=== PATIENT | female | born 1985 | race Caucasian/White ===

== ENCOUNTER 2018-04-10 17:15 | Outpatient (CLI) | payer MEDICAID, SELFPAY ==
[2018-04-10 18:14] VITALS: BMI 35.5
[2018-04-10 18:25] LABS: ROM Internal Control Test YES-OK TO RESULT pt. (Internal QC); ROM Patient Test Negative (Negative)
[2018-04-10 19:32] LABS: Group B Strep DNA By PCR Negative (Negative); Internal Control PASS; Probe Check PASS; Specimen Processing Control PASS
--- NOTE | 2018-04-11 03:32 | OB.TRI.NOTE ---
- Problem List (1) False labor Status: Acute History of Present Illness Date of Service: 04/10/18 Was patient seen by the physician?: No Reason For Visit: R/O LABOR Date of Service: 04/10/18 Final ROGER: 05/11/18 Gestational age: 35w4d History of Present Illness: female at 35w4 days, ROGER 05/11/18. Presented to L&D with complaint of leakage of fluid this afternoon. No contractions, vaginal bleeding or other complaints. Good movement. Allergies No Known Allergies Allergy (Verified 04/10/18 18:16) Laboratory Studies: Laboratory Tests 04/10/18 04/10/18 Range/Units 17:40 17:40 Vag Amniotic Fld Detect Negative (Negative) Group B Strep DNA Negative (Negative) Specimen Comment Not Reportable NST - FHR Rate Baby A Baseline: 145 Variability:: Moderate Accelerations:: 15 x 15 Decelerations:: None NST Reactive:: Yes Uterine Activity:: Irregular Impression/Plan A:False Labor P: 1) ROM plus negative, membranes intact 2) D/C home
--- NOTE | 2018-04-11 03:37 | OB.TRI.HP_ITS ---
- Problem List (1) False labor Status: Acute History of Present Illness Date of Service: 04/10/18 Was patient seen by the physician?: No Reason For Visit: R/O LABOR Date of Service: 04/10/18 Final ROGER: 05/11/18 Gestational age: 35w4d History of Present Illness: female at 35w4 days, ROGER 05/11/18. Presented to L&D with complaint of sapna kage of fluid this afternoon. No contractions, vaginal bleeding or other complaints. Good movement. Allergies No Known Allergies Allergy (Verified 04/10/18 18:16) Laboratory Studies: Laboratory Tests 04/10/18 04/10/18 Range/Units 17:40 17:40 Vag Amniotic Fld Detect Negative (Negative) Group B Strep DNA Negative (Negative) Specimen Comment Not Reportable NST - FHR Rate Baby A Baseline: 145 Variability:: Moderate Accelerations:: 15 x 15 Decelerations:: None NST Reactive:: Yes Uterine Activity:: Irregular Impression/Plan A:False Labor P: 1) ROM plus negative, membranes intact 2) D/C home
== END 2018-04-10 19:00 | disposition home or self-care (01) ==
LOC: WPOUT 17:18 → WP 17:19
PROVIDERS: Family Provider Internal Medicine; PCP Internal Medicine; Referring Provider Advanced Practice Midwife; Visit Provider Advanced Practice Midwife
DX: O47.03 False labor before 37 completed weeks of gestation, third trimester (principal); Z3A.35 35 weeks gestation of pregnancy
CPT/HCPCS: 59025; 59050; 84112; 87081; 87653; 99218; G0378

== ENCOUNTER 2018-04-27 10:10 | Inpatient (IN) | payer MEDICAID, SELFPAY ==
[2018-04-27 10:23] VITALS: BMI 36.3
[2018-04-27 11:07] LABS: Hematocrit 37.8 % (37-47); Hemoglobin 12.2 g/dl (12.0-15.0); Mean Corp Hgb Conc 32.3 g/gl (32-36); Mean Corpuscular Hgb 30.3 pg (27.0-32.0); Mean Platelet Vol. 12.9 fl (6.2-12.0); Platelet Count 172 K/mm3 (150-450); RBC Distribution Width CV 14.4 % (11.6-14.6); RBC Distribution Width SD 49.1 fl (35.1-43.9); Red Blood Count 4.02 M/mm3 (4.2-5.4); White Blood Count 8.4 K/mm3 (4.4-11.0)
[2018-04-27 11:08] LABS: Scan Indicated on CBC? Y/N NO
[2018-04-27 11:13] LABS: International Normalized Ratio 0.9; Prothrombin Time (Protime)PT. 12.2 SECONDS (11.7-14.9)
[2018-04-27 11:23] LABS: AST(SGOT) 11 U/L (15-37); Alanine Aminotransfer ALT/SGPT 18 U/L (13-56); Creatinine, Serum 0.59 mg/dL (0.55-1.02); EST Glomerular Filtration Rate 126 mL/min (>60); Est Glom Filt Rate - Afr Amer 153 mL/min (>60); Estimated Creatinine Clearance 110.27 ml/min; Uric Acid 4.2 mg/dL (2.6-6.0)
[2018-04-27] MEDS: miSOPROStol 25 MCG TABLET VAGINAL (11:35)
[2018-04-27] MEDS: 0.9% Normal Saline 100 ML IV.SOLN. INTRA-UTER (13:15)
--- NOTE | 2018-04-27 13:25 | HP.PCM_ITS ---
History Date of Admission: 04/27/18 Final ROGER: 05/11/18 Final ROGER Source: US <20 weeks Gestational age: 38 Weeks and 0 Days History of this : This is a 32 year-old, G 1, P 0, at 38 weeks gestational age with EDC of 05/11/2018 by first trimester ultrasound alone presents for induction of labor due to gestational hypertension. She denies any vaginal bleeding or leaking of fluid. She has had good movement. She denies any headache or visual changes or epigastric pain. Her blood pressures have been trending up and some of her diastolics have been running in the 80s. In the office today several blood pressures were done and her average on the true BP monitor was 142/86. We had another reading of 148/88. Allergies No Known Allergies Allergy (Verified 04/27/18 11:01) Home Medications: Home Medications Vitamin Tablet 1 04/10/18 Smoking Status: Never smoker Alcohol: None Number of Fetus(es): 1 Heart Tracing: Normal baseline, moderate variability, spontaneous accelerations. Category 1 TOCO Analysis: Irregular contractions History Past Pregnancies: Past Pregnancies Delivery Date Name GA/Weeks Outcome Route Weight Gender Labor Length Anesthesia Delivery Location Provider FOB Expected Infant Delivery Method: Spontaneous Vaginal Review of Systems Constitutional: Denies: Anorexia, Chills, Fever Eyes: Denies: Blurred vision Cardiovascular: Denies: Chest Pain Respiratory: Reports: Shortness of Breath - normal for . Denies: Cough Gastrointestinal: Denies: Abdominal Pain, Vomiting Genitourinary: Denies: Dysuria Neurological: Denies: Blurred vision, Change in Speech Physical Exam General: Alert, Cooperative, No apparent distress Cardiovascular: Regular rate Lungs: Normal air movement Abdomen: Soft, Non Tender, Non-Distended, Gravid, Appropriate for Gestational Age Extremities:: Other - 1+ LE edema Neurological: Deep Tendon Reflexes 2+/4 and Symmetrical, Neuro grossly intact, Motor Exam 5/5 strength throughout [employer]: Normal external genitalia Estimated gestational size: Appropriate for gestational size Presentation: Cephalic Cervix Dilation (cm): 0.5 - mid position, firm consistency Station: -2 Effacement (%): 60 Assessment/Plan All Active Problems False labor (Acute) This is a 32 year-old, G 1, P 0, at 38 weeks gestational age. Gestational hypertension without evidence of preeclampsia. Labs are reviewed and are normal. Risk benefits and alternatives to induction of labor been discussed with the patient, questions were answered to her satisfaction, consent was signed and she desires to proceed. One dose of vaginal Cytotec given. Can catheter placed over a stylette into the external cervical loss and balloon inflated w. 30 cc of normal saline. This was performed in the usual sterile fashion. Placement against the internal cervical loss was confirmed. Will initiate pitocin after cytotec vaginal.
[2018-04-27 14:43] LABS: Protein, Urine (Random) 23.9 mg/dL (<11.9); Protein:Creat Ratio 219 mg/g CRE (0-200)
[2018-04-27] MEDS: Lactated Ringers 1,000 ML 50 ML IV ×3 (19:20→22:31)
[2018-04-27] MEDS: Oxytocin 30 units/NS 500 ml 30 UNITS/500 ML IV.SOLN IV (20:21)
[2018-04-28] MEDS: fentaNYL-bupivacaine (epidural) 100 ML BAG EPIDURAL ×4 (00:38→15:19)
[2018-04-28] MEDS: Lactated Ringers 1,000 ML 50 ML IV ×4 (03:29→18:42)
--- NOTE | 2018-04-28 10:04 | PCM.PN.BLA ---
Progress Note S: Patient comfortable with epidural O: cvx - 8/80/0 fhts 150 with minimal to moderate variability, accels tocos Q 3-4 min A&P: continue pitocin induction FWB - EFM overall reassuring BP's overall normal
[2018-04-28] MEDS: Ondansetron 4 MG/2 ML Vial IV (10:22)
--- NOTE | 2018-04-28 19:00 | PCM.OB.VAG ---
Vaginal Delivery Maternal Presentation: Medically Indicated Induction Method of Induction: Pitocin, Can Bulb, Amniotomy, Cytotec Medical Reason for Induction: Gestational Hypertension Amniotic Membrane Rupture Type: Artificial Amniotic Fluid Description: Clear Final ROGER: 05/11/18 Gestational age: 38 Weeks and 1 Days Date of Procedure: 04/28/18 Pre-Operative Diagnosis: Gestational hypertension Post-Operative Diagnosis: Same Surgery/ Procedure Performed: Spontaneous Vaginal Delivery Type of Anesthesia: Epidural Description of Procedure: Patient prepped & draped when c/c/+3. She pushed with good effort to deliver the head. head gently guided to allow delivery of anterior & posterior shoulders. No excess traction placed on head. Body delivered & infant placed on maternal abdomen. 3VC clamped & cut in delayed fashion. Placenta delivered with gentle traction & good uterine tone obtained. Presentation: ROP Placental Delivery Description: Expressed Placenta Disposition: [facility] Cord Vessel Description: 3 Vessels Cord Entanglement: None Infant A gender: Female (1 minute): 6 (5 minute): 8 Episiotomy Description: None Laceration: 2nd degree - perineal - repaird with 3-0 vicryl Medications given after delivery: IV Pitocin Complications: None
[2018-04-28] MEDS: Oxytocin 30 units/NS 500 ml 30 UNITS/500 ML IV.SOLN 334 UNITS IV (19:18)
[2018-04-28] MEDS: Oxytocin 30 units/NS 500 ml 30 UNITS/500 ML IV.SOLN 167 UNITS IV (19:48)
[2018-04-28] MEDS: 0.9% Saline Lock 10 ML Syringe IV (21:00)
[2018-04-28 21:30] VITALS: BP 135/81; PULSE 90; RESP 16; TEMP 37
[2018-04-28] MEDS: Naproxen 250 MG Tablet PO (23:08)
[2018-04-29 00:30] VITALS: BP 136/85; PULSE 114; RESP 16; TEMP 36
[2018-04-29 04:53] VITALS: BP 126/60; PULSE 95; RESP 18; TEMP 35.9
[2018-04-29 09:02] VITALS: BP 138/79; PULSE 89; RESP 16; TEMP 36.2
[2018-04-29 11:48] VITALS: BP 139/82; PULSE 86; RESP 16; TEMP 36.2
--- NOTE | 2018-04-29 13:27 | PCM.PN.OB ---
Subjective: Patient sitting up in bed at this time . Patient denies any issues, complaints or concerns. Denies any issues with latch. Denies complications with urination or ambulation. Objective: Nipples without cracks or blisters, no erythema noted BL Abdomen NT x 4 quadrants, FF midline 2FB below umbilicus +2/4 reflexes in LE, no edema, no calf tenderness to palpation Scant rubra lochia - Physical Exam General: Alert, Oriented x3, Cooperative HEENT: Atraumatic, Normocephalic Neck: Supple Lungs: Normal air movement Cardiovascular: Regular rate, No murmurs Abdomen: Soft, Non Tender Extremities: No edema, Capillary Refill Less than 3 Seconds Skin: No rashes, No breakdown Musculoskeletal: No Tenderness to Palpation of Joints or Extremities Neurological: Cranial nerves II-XII grossly intact Psych/Mental Status: Normal Affect, Appropriate Vital Signs Temp Pulse Resp BP 97.2 F L 86 16 139/82 H 04/29/18 11:48 04/29/18 11:48 04/29/18 11:48 04/29/18 11:48 Oxygen Delivery Method Room Air Weight: 198 lb 9.6 oz Body Mass Index (BMI) 36.3 Intake and Output for Last 24 Hours 04/27/18 04/28/18 04/29/18 23:59 23:59 23:59 Intake Total 450 / 450 4374 / 4374 Output Total 300 / 300 2350 / 2350 425 / 425 Balance 150 / 150 2023 -425 / -425 Medical Necessity - Tobacco Use Smoking Status: Never smoker Assessment/Plan All Active Problems False labor (Acute) 32 y/o s/p , PPD #1, Normal PP course P: 1) Continue present PP orders at this time 2) Anticipate discharge to home tomorrow Pat Helton APRN-BECCA
--- NOTE | 2018-04-29 13:33 | DCINST_ITS ---
Discharge Diet: No Restrictions Discharge Activity: Return to Normal Activity, May not drive while taking narcotic pain medications., May Shower May resume sexual activity in: 4-6 weeks Additional Activity Instructions:: Nothing in the vagina for 4-6 weeks. You may return to work/school in 6 weeks. Call your doctor if your incision/area has: Continuous Slow Oozing, Sudden Increased Bleeding, Increased Pain/ Swelling, Increased Redness, Foul Smelling Discharge Call your doctor if you observe: Fever of 101 or Higher, Inability to urinate, Inability to have a bowel movement, Using more than one pad per hour Additional Instructions: If you experience any of the following, contact your healthcare provider. * Bleeding that soaks a pad every hour for 2 hours * Fever 100.4 or higher * Unrelieved incision or abdominal pain * Swelling, redness, discharge or bleeding from your incision or episiotomy site * Your incision begins to separate * Problems urinating (including inability to urinate or burning while urinating). * Visual changes * Severe headache * Flu-like symptoms * Pain or redness in one of both of your breasts * Pain, warmth, tenderness or swelling in your legs, especially the calf area * Frequent nausea and vomiting * Symptoms of depression or anxiety If you experience any of the following, call 911 or go to the nearest Emergency Room. * Chest pain * Problems breathing * Seizure activity * Partial or complete paralysis of a body part, slurred speech, weakness or drooping of the face, or a sudden inability to walk or hold your balance Allergies/Adverse Reactions: Allergies No Known Allergies Allergy (Verified 04/27/18 11:01) Medications to take at Discharge Vitamin Tablet 1 04/10/18 Please Follow Up With: Pat Helton CNM - 2 week PP visit When: Call to make an appointment with your doctor in 6 weeks. If you had elevated Blood Pressure or 4th degree laceration you will need to be seen in 2 weeks. Please Follow Up With: Alba Main - 6 weeks PP visit Primary Care Physician: Cedrick Lam MD [Primary Care Provider] - Test Results: Test results from this visit will be discussed in further detail at your follow- up appointment, if applicable. Proposed Discharge Date: 04/30/18
[2018-04-29 16:20] VITALS: BP 129/71; PULSE 72; RESP 20; TEMP 36.4
[2018-04-29] MEDS: Naproxen 250 MG Tablet PO (19:02)
[2018-04-29 20:00] VITALS: BP 126/69; PULSE 87; RESP 14; TEMP 36.9; O2SAT 97
[2018-04-30 02:25] VITALS: BP 118/56; PULSE 75; RESP 14; TEMP 36.8; O2SAT 96
[2018-04-30] MEDS: Acetaminophen 500 MG Tablet 1000 MG PO (02:32)
[2018-04-30 08:09] VITALS: BP 122/68; PULSE 99; RESP 16; TEMP 36.5
--- NOTE | 2018-04-30 12:45 | PCM.PN.OB ---
Subjective: Doing well per patient and nursing staff. without difficulty. Voiding and passing flatus. Denies headache, visual changes, chest pain, SOB, increased vaginal bleeding or clots. Planning D/C home today. - Physical Exam General: Alert, Oriented x3, Cooperative, No apparent distress HEENT: Atraumatic, Normocephalic Neck: Supple, Trachea Midline Lungs: Clear to auscultation, No rhonchi, No wheeze Cardiovascular: Regular rate, Regular Rhythm, No murmurs Abdomen: - - Non tender 3 below U Extremities: Edema - +1 BLE edema, pitting, - - +2/4 bilateral patllar. No clonus Neurological: Deep Tendon Reflexes 2+/4 and Symmetrical Psych/Mental Status: Normal Affect, Appropriate Vital Signs Temp Pulse Resp BP Pulse Ox 97.7 F L 99 16 122/68 H 96 04/30/18 08:09 04/30/18 08:09 04/30/18 08:09 04/30/18 08:09 04/30/18 02:25 Oxygen Delivery Method Room Air Weight: 198 lb 9.6 oz Body Mass Index (BMI) 36.3 Intake and Output for Last 24 Hours 04/28/18 04/29/18 04/30/18 23:59 23:59 23:59 Intake Total 4374 / 4374 Output Total 2350 / 2350 425 / 425 Balance 2023 / 2023 -425 / -425 Medical Necessity - Tobacco Use Smoking Status: Never smoker Assessment/Plan All Active Problems False labor (Acute) A: of viable female Gestational HTN P: 1) Routine D/C instructions and BF info given. 2) Follow up for BP check on Friday, May 04 and 6week visit. 3) Reviewed Pre-e precautions and when to call. BP stable at this time.
[2018-04-30 13:10] VITALS: BP 127/72; PULSE 76; RESP 16; TEMP 36.4
--- NOTE | 2018-05-05 18:19 | NURSING ---
follow up call complete, denies questions, concerns and was satisfied with care
== END 2018-04-30 13:40 | disposition home or self-care (01) | DRG 560 ==
PROVIDERS: Admitting Provider Obstetrics & Gynecology; Family Provider Internal Medicine; PCP Internal Medicine; Visit Provider Obstetrics & Gynecology
DX: O13.4 Gestational [pregnancy-induced] hypertension without significant proteinuria, complicating childbirth (principal); O70.1 Second degree perineal laceration during delivery; Z3A.38 38 weeks gestation of pregnancy; Z37.0 Single live birth
CPT/HCPCS: 59025; 59050; 82565; 82570; 84156; 84450; 84460; 84550; 85027; 85610; 85730; 86850; 86900; 99218; J7050; J7120; A4216; G0378; J2405

== ENCOUNTER 2018-06-07 18:04 | Emergency (ER) | payer MEDICAID, SELFPAY ==
[2018-06-07 18:06] VITALS: BP 150/87; PULSE 81; RESP 17; TEMP 36.6; O2SAT 97; BMI 31.1
--- NOTE | 2018-06-07 18:15 | RAD_ITS ---
STUDY: X-RAY CHEST REASON FOR EXAM: Female, 32 years old. Chest pain TECHNIQUE: Single AP portable view of the chest. COMPARISON: None. FINDINGS: The lungs are clear and expanded. There is no demonstrated pleural abnormality. Normal size heart. Normal mediastinum and donovan. Normal visualized pulmonary arteries. Normal visualized aortic arch and descending thoracic aorta. Normal visualized thoracic spine. Normal visualized ribs, clavicles, and shoulders. There is no demonstrated abnormality of the visualized soft tissue structures of the upper abdomen. RAD/Chest 1 View (Portable) IMPRESSION: Normal x-ray examination of the chest. Electronically Signed: Kenneth Davidson MD at 18:52 EST , Service support ,
[2018-06-07 18:22] VITALS: O2SAT 97
[2018-06-07 18:25] LABS: Absolute Lymphocyte Count 1.75 X10^3/ul (0.83-4.51); Absolute Neutrophil Count 3.4 X10^3/uL (2.0-7.7); Basophil# 0.01 X10^3/uL; Basophil% 0.2 % (0-1); Eosinophil# 0.12 X10^3/uL; Eosinophils% 2.1 % (0-5); Hematocrit 41.3 % (37-47); Hemoglobin 13.5 g/dl (12.0-15.0); Lymphocyte # 1.75 X10^3/ul (4.0); Lymphocyte % 30.5 % (19-41); Mean Corp Hgb Conc 32.7 g/gl (32-36); Mean Corpuscular Hgb 29.7 pg (27.0-32.0); Mean Platelet Vol. 11.3 fl (6.2-12.0); Neutrophil # 3.44 X10^3/uL (2.7-7.7); Platelet Count 199 K/mm3 (150-450); RBC Distribution Width CV 13.1 % (11.6-14.6); RBC Distribution Width SD 43.5 fl (35.1-43.9); Red Blood Count 4.54 M/mm3 (4.2-5.4); White Blood Count 5.7 K/mm3 (4.4-11.0)
[2018-06-07 18:27] LABS: POSITIVE COUNT NO; POSITIVE DIFFERENTIAL NO; POSITIVE MORPHOLOGY NO
[2018-06-07 18:45] LABS: Anion Gap 9 (5-15); BUN 12 mg/dL (7-18); BUN/Creat Ratio 12.2 RATIO (10-20); Calcium,Total 8.5 mg/dL (8.5-10.1); Chloride 107 mmol/L (98-107); Creatinine, Serum 0.98 mg/dL (0.55-1.02); EST Glomerular Filtration Rate 70 mL/min (>60); Est Glom Filt Rate - Afr Amer 85 mL/min (>60); Estimated Creatinine Clearance 66.39 ml/min; Glucose 85 mg/dL (74-106); Potassium 3.5 mmol/L (3.5-5.1); Sodium Level 144 mmol/L (136-145)
--- NOTE | 2018-06-07 19:02 | ED.VISSUMM ---
- ER Visit Summary Date of Service: 06/07/18 Chief Complaint: Chest pain History of Present Illness: The patient is a 32 F 4 weeks who presents for 1-1/2 hours of low sternal/epigastric chest pain radiating into the back. Patient has associated shortness of breath and cold sweats. She states the pressure becomes worse with breathing. It is described as pressure and burning. She does feel nauseated but has no overt abdominal pain. Onset was while she was bottle feeding her 1-month-old . Patient states she had a similar episode lasting only 1-2 minutes occurring once for the last 3 days. Patient has history of gestational hypertension and was on labetalol, which she is now been weaned off of. She denies any headache, vision changes, urinary symptoms, leg swelling. No fever, cough. Patient does not smoke. No history of PE. Physical Examination: Vital signs: afebrile, hemodynamically stable, no hypoxia on room air General: well nourished, well developed, in no distress Skin: warm, dry, no rash, no pallor HEENT: normocephalic and atraumatic; PERRL, EOMI, moist mucous membranes Cardiovascular: regular rate and rhythm without murmurs, no peripheral edema, 2+ pulses all distal extremities Respiratory: No increased work of breathing, lungs are clear to auscultation bilaterally, no rales, rhonchi or wheezing Abdominal: Abdomen is soft, nontender with normoactive bowel sounds, no guarding or rebound, no masses MSK: Moves all extremities, no deformities, normal strength Neuro: Awake and alert, oriented ?4. No facial droop, sensation and motor function intact and symmetric Test Results: Abnormal Lab Results 06/07/18 06/07/18 06/07/18 18:10 18:10 18:10 WBC 5.7 RBC 4.54 Hgb 13.5 Hct 41.3 MCV 91.0 MCH 29.7 MCHC 32.7 RDW 13.1 RDW Differential 43.5 Plt Count 199 MPV 11.3 Immature Gran % (Auto) 0.200 Neut % (Auto) 60.0 Lymph % (Auto) 30.5 King % (Auto) 7.0 Eos % (Auto) 2.1 Baso % (Auto) 0.2 Absolute Neuts (auto) 3.4 Absolute Lymphs (auto) 1.75 Total Counted Not Reportable D-Dimer Quant (PE/DVT) Sodium 144 Potassium 3.5 Chloride 107 Carbon Dioxide 28.0 Anion Gap 9 BUN 12 Creatinine 0.98 Estim Creat Clear Calc 66.39 Est GFR (MDRD) Af Amer 85 Est GFR (MDRD) Non-Af 70 BUN/Creatinine Ratio 12.2 Glucose 85 Calcium 8.5 Total Bilirubin 0.50 Direct Bilirubin 0.14 AST 27 ALT 66 H Alkaline Phosphatase 71 Troponin I < 0.015 Total Protein 6.8 Albumin 3.7 Globulin 3.1 Lipase Urine Color Urine Clarity Urine pH Ur Specific Cory Urine Protein Urine Glucose (UA) Urine Ketones Urine Occult Blood Urine Nitrite Urine Bilirubin Urine Urobilinogen Ur Leukocyte Esterase Urine RBC Urine WBC Ur Squamous Epith Cells Urine Bacteria Urine Mucus 06/07/18 06/07/18 06/07/18 18:10 18:10 19:25 WBC RBC Hgb Hct MCV MCH MCHC RDW RDW Differential Plt Count MPV Immature Gran % (Auto) Neut % (Auto) Lymph % (Auto) King % (Auto) Eos % (Auto) Baso % (Auto) Absolute Neuts (auto) Absolute Lymphs (auto) Total Counted D-Dimer Quant (PE/DVT) < 0.27 L Sodium Potassium Chloride Carbon Dioxide Anion Gap BUN Creatinine Estim Creat Clear Calc Est GFR (MDRD) Af Amer Est GFR (MDRD) Non-Af BUN/Creatinine Ratio Glucose Calcium Total Bilirubin Direct Bilirubin AST ALT Alkaline Phosphatase Troponin I Total Protein Albumin Globulin Lipase 100 Urine Color Yellow Urine Clarity Clear Urine pH 8.0 Ur Specific Cory 1.015 Urine Protein Negative Urine Glucose (UA) Normal Urine Ketones Negative Urine Occult Blood Negative Urine Nitrite Negative Urine Bilirubin Negative Urine Urobilinogen Normal Ur Leukocyte Esterase 25 H Urine RBC 0 SEEN Urine WBC 0-5 SEEN Ur Squamous Epith Cells 0-5 SEEN Urine Bacteria RARE Urine Mucus 0 SEEN Medications Given Discontinued Medications Al Hydroxide/Mg Hydroxide (Mylanta Ii) 30 ml PO X1 ONE Stop: 06/07/18 19:03 Last Admin: 06/07/18 19:18 Dose: 30 ml Ketorolac Tromethamine (Toradol) 15 mg IV X1 ONE Stop: 06/07/18 20:19 Last Admin: 06/07/18 21:19 Dose: Not Given Lidocaine HCl (Xylocaine Viscous) 15 ml PO X1 ONE Stop: 06/07/18 19:03 Last Admin: 06/07/18 19:18 Dose: 15 ml Multi-Ingredient GI Drug () 1 each PO X1 ONE Stop: 06/07/18 19:02 Last Admin: 06/07/18 19:18 Dose: 1 each Clinical Impression(s) from Imaging Studies Chest X-Ray 06/07/18 18:15 IMPRESSION: Normal x-ray examination of the chest. Electronically Signed: Kenneth Davidson MD at 18:52 EST , Service support , Emergency Department Course and Treatment: Patient presents for chest pressure radiating into the back, was hypertensive at presentation, and is 4 weeks . She has increased risk of pulmonary embolism and still is within the timeframe of preeclampsia, thus workup included these concerns. PE is less likely since patient has been having brief episodes of this pain over the last 4 days with periods that are pain-free in between. Patient is having no headache, vision changes, abdominal pain, leg swelling or other complaints that would be concerning for preeclampsia. Blood pressure did improve while in the emergency department. EKG showed a sinus rhythm with no ischemic changes. CBC showed no leukocytosis or anemia. Patient had no renal or hepatic derangements, no electrolyte derangements, and no abnormalities on her urinalysis. Troponin negative. A d-dimer was checked and was negative at 0.27. Chest x-ray showed no acute process. Patient received a GI cocktail and had improvement in her pain, however on reevaluation she stated that her pain actually had improved before she received a GI cocktail. She continued to have 3 out of 10 pain. Blood pressure 136/81 heart rate 77 and 99% on room air. Heart score is 2. Patient was ordered additional Toradol for her chest pain and refused, stating she would prefer to go home and is feeling better. Patient has no findings on her workup that require admission or further emergent testing at this time. Patient discharged home with return precautions. Treatment Plan: [] Disposition: [] Impression: Atypical chest pain This note was generated with [employer] dictation software. It may contain incorrect words, spelling, and punctuation that were not noted in review of the chart prior to signing ED Disposition - Plan for ED Patient: Disposition: Home or Assisted Living Chief Complaint: Chest Pain Instructions: ED Chest Pain Atypical Unkn Cause Referrals: Care Physician,No Primary [Primary Care Provider] - Additional Instructions: Please follow-up with your doctor in 2-3 days if you are still having these episodes of chest pain. Return to the emergency department immediately if your condition worsens or you have any new or concerning symptoms. If you have any worsening of your condition or any new concerning symptoms, please return immediately to the emergency department for another evaluation.
[2018-06-07] MEDS: Mag Hydrox/Al Hydrox/Simeth 30 ML UDC PO (19:18)
[2018-06-07 19:19] VITALS: BP 135/77; PULSE 78; RESP 16; O2SAT 98
[2018-06-07 19:34] LABS: Mucous, Urine 0 SEEN /hpf (<or=2+); Red Blood Cells-Urine 0 SEEN /hpf (0-5)
[2018-06-07 19:38] LABS: Color, Urine Yellow (Yellow); Glucose, Dipstick Normal (Normal); Ketone-Dipstick Negative (Negative); Leukocyte Esterase-Dipstick 25 /ul (Negative); Nitrite-Dipstick Negative (Negative); Occult Blood-Urine Negative /ul (Negative); Protein-Dipstick Negative (Negative); Specific Gravity, Urine 1.015 (1.002-1.030); Urine Bilirubin Dipstick Negative (Negative); Urine Clarity Clear (Clear); Urine Urobilinogen Normal (Normal)
[2018-06-07 19:40] LABS: D-Dimer Quantitative (DVT/PE) < 0.27 FEU/ug/m (0.27-0.49)
[2018-06-07 19:43] LABS: AST(SGOT) 27 U/L (15-37); Alanine Aminotransfer ALT/SGPT 66 U/L (13-56); Albumin, Serum 3.7 g/dL (3.2-5.0); Alkaline Phosphatase 71 U/L (45-117); Bilirubin, Direct 0.14 mg/dL (0.00-0.30); Globulin 3.1 g/dL (2.2-4.2); Protein, Total 6.8 g/dL (6.4-8.2)
[2018-06-07 19:45] LABS: Bacteria RARE /hpf (None Seen); Squamous Epithelial Cells - UA 0-5 SEEN /hpf (5-10); White Blood Cells 0-5 SEEN /hpf (0-5)
[2018-06-07 19:49] LABS: Lipase 100 U/L (73-393)
[2018-06-07 20:05] VITALS: BP 136/81; PULSE 77; RESP 13; O2SAT 99
--- NOTE | 2018-06-07 20:34 | ED.DEP ---
ED Disposition - Plan for ED Patient: Disposition: Home or Assisted Living Chief Complaint: Chest Pain Instructions: ED Chest Pain Atypical Unkn Cause Referrals: Care Physician,No Primary [Primary Care Provider] - Additional Instructions: Please follow-up with your doctor in 2-3 days if you are still having these episodes of chest pain. Return to the emergency department immediately if your condition worsens or you have any new or concerning symptoms. If you have any worsening of your condition or any new concerning symptoms, please return immediately to the emergency department for another evaluation.
[2018-06-07 20:40] VITALS: BP 128/82; PULSE 75; RESP 15; O2SAT 97
== END 2018-06-07 21:21 | disposition home or self-care (01) ==
PROVIDERS: Emergency Provider Emergency Medicine
DX: O90.89 Other complications of the puerperium, not elsewhere classified (principal); R07.89 Other chest pain; R06.02 Shortness of breath
CPT/HCPCS: 71045; 80048; 80076; 81001; 83690; 84484; 85025; 85379; 93005; 99285; A4216

== ENCOUNTER 2018-06-28 23:36 | Observation (INO) | payer MEDICAID, SELFPAY ==
[2018-06-28 23:38] VITALS: BP 125/99; PULSE 86; RESP 18; TEMP 36.6; O2SAT 99; BMI 30.5
[2018-06-29] VITALS (12 sets, daily range): BP systolic 112–144; BP diastolic 55–91; PULSE 52–97; RESP 14–18; TEMP 36.3–36.8; O2SAT 92–100; BMI 30.5
--- NOTE | 2018-06-29 | GALL_PTH ---
PATIENT: THIERRY HER LOC: [facility] U#:[id number] AGE/SX: 32/F ROOM: [facility]306 RE06/29/[address]: Dr. Arlene Moreno MD : [id number] BED: 1 DIS: 06/30/2018 SPEC #: [id number] RECD: 06/29/18 14:20 STATUS: [place] #: [id number] LILY: 06/29/18 00:[address]: Arlene Moreno DEPT: SURGICAL PATHOLOGY RECD BY: Sukumar Salcedo ENTERED: 06/29/18 14:21 SP TYPE: ZACHERY THORNTON DR: Dr. Carlton Hernandez DO Tissues: Gallbladder, NOS Procedures: Surgery Specimen Level III HEADER OPERATION: Laparoscopic cholecystectomy with IOC PRE-OP DIAGNOSIS: Acute cholecystitis with cholelithiasis and elevated liver values TISSUE SUBMITTED: Gallbladder MICROSCOPIC DIAGNOSIS Gallbladder, cholecystectomy: Cholesterolosis, chronic cholecystitis and cholelithiasis. AM:santos 06/30/18 MICROSCOPIC DESCRIPTION Slides are reviewed. GROSS DESCRIPTION Received is one container labeled with the patient's name and designated gallbladder. The specimen consists of a gallbladder measuring 8 cm in length and up to 3.5 cm in diameter. The external surface is pink-craig, smooth and glistening for the most part. Focally it is granular, hemorrhagic and contains cautery artifact. The gallbladder contains green-yellow mucoid bile and multiple mulberry, greenish-yellow to orange stones measuring in aggregate 6 x 5 x 0.3 cm and 0.2 to 0.4 cm in greatest dimension. The mucosa is bile-stained and without any mass lesions. The gallbladder wall measures up to 0.2 cm in thickness. Physical Integration Practitioner sections from the gallbladder and the cystic duct are submitted in one cassette. / SJ:santos 06/29/18 TC:3 CPT: 93530
[2018-06-29] MEDS: Ondansetron 4 MG/2 ML Vial IV (00:07)
[2018-06-29] MEDS: Ketorolac 30 MG/ML Syringe 15 MG IV (00:07)
[2018-06-29 00:33] LABS: Absolute Neutrophil Count 6.3 X10^3/uL (2.0-7.7); Basophil# 0.01 X10^3/uL; Basophil% 0.1 % (0-1); Eosinophil# 0.07 X10^3/uL; Eosinophils% 0.9 % (0-5); Hematocrit 39.9 % (37-47); Hemoglobin 13.4 g/dl (12.0-15.0); Lymphocyte % 17.1 % (19-41); Mean Corp Hgb Conc 33.6 g/gl (32-36); Mean Corpuscular Hgb 30.4 pg (27.0-32.0); Mean Corpuscular Volume 90.5 fL (81-99); Mean Platelet Vol. 11.4 fl (6.2-12.0); Monocyte# 0.43 X10^3/uL; Monocyte% 5.2 % (0-10); Neutrophil # 6.29 X10^3/uL (2.7-7.7); Neutrophil % 76.6 % (47-70); Platelet Count 278 K/mm3 (150-450); RBC Distribution Width SD 42.6 fl (35.1-43.9); Red Blood Count 4.41 M/mm3 (4.2-5.4); White Blood Count 8.2 K/mm3 (4.4-11.0)
[2018-06-29 00:35] LABS: POSITIVE COUNT NO; POSITIVE DIFFERENTIAL NO; POSITIVE MORPHOLOGY NO
[2018-06-29 00:48] LABS: ALB/GLOB Ratio 1.2 RATIO (0.9-2.4); AST(SGOT) 196 U/L (15-37); Alanine Aminotransfer ALT/SGPT 320 U/L (13-56); Albumin, Serum 3.9 g/dL (3.2-5.0); Alkaline Phosphatase 119 U/L (45-117); Anion Gap 11 (5-15); BUN 11 mg/dL (7-18); BUN/Creat Ratio 13.4 RATIO (10-20); Calcium,Total 8.6 mg/dL (8.5-10.1); Chloride 107 mmol/L (98-107); Creatinine, Serum 0.82 mg/dL (0.55-1.02); EST Glomerular Filtration Rate 87 mL/min (>60); Est Glom Filt Rate - Afr Amer 105 mL/min (>60); Estimated Creatinine Clearance 79.34 ml/min; Globulin 3.2 g/dL (2.2-4.2); Glucose 110 mg/dL (74-106); Protein, Total 7.1 g/dL (6.4-8.2); Sodium Level 140 mmol/L (136-145)
[2018-06-29 01:00] LABS: Lipase 127 U/L (73-393)
[2018-06-29] MEDS: 0.9% Normal Saline 1,000 ML 150 ML IV (01:13)
--- NOTE | 2018-06-29 01:33 | US_ITS ---
STUDY: ABDOMINAL ULTRASOUND - RIGHT UPPER QUADRANT REASON FOR VISIT: Female, 32 years old. Right upper quadrant pain. TECHNIQUE: Ultrasound evaluation of the right upper quadrant was performed with real-time and static sheth-scale imaging. TECHNICAL QUALITY: Adequate. COMPARISON: None. FINDINGS: Liver: The liver measures 14.2 cm. There is normal echogenicity of the liver. The bile ducts are within normal limits. There is hepatic color flow. The direction of portal flow is hepatopetal. There is no demonstrated mass lesion. Gallbladder: Normal distended gallbladder. The gallbladder wall measures 3 mm. There is a negative sonographic Astudillo's sign. There is no pericholecystic fluid. There are multiple echogenic structures within the gallbladder, consistent with multiple gallstones. Common Bile Duct (C.B.D.): The common bile duct measures 4 mm. Pancreas: Normal size of the head, body and tail of the pancreas. There is normal echogenicity of the pancreas. There is no demonstrated pancreatic mass or cyst. Right Kidney: Normal size of the right kidney. The right kidney measures 10.1 x 4 x 3.8 cm. Normal renal cortex. The right cortex measures 1.2 cm. There is no demonstrated renal mass or cyst. There is no right hydronephrosis. US/Gallbladder IMPRESSION: Cholelithiasis. Electronically Signed: Bertrand Reyes MD at 3:13 EST Tel , Service support ,
--- NOTE | 2018-06-29 02:05 | ED.DCSUM_ITS ---
- ER Visit Summary Date of Service: 06/29/18 Chief Complaint: Abdominal pain History of Present Illness: The patient is a 32 F presenting for evaluation secondary to abdominal pain. Patient reports that she has had intermittent abdominal pain over the course of the last month. This typically is associated in the epigastrium and comes and goes. Patient reports that yesterday she had about a 1-1/2-hour episode of this that spontaneously resolved, but today she has had 2 hours of continuous pain. Patient reports epigastric goes through to her back. No real exacerbating relieving factors. Associated with nausea no vomiting, she denies any presence of diarrhea. She denies any presence of fevers. Patient is never had any prior abdominal surgeries in the past. Patient is 2 months from a normal vaginal delivery. Review of systems otherwise negative. Physical Examination: Vital signs are within normal limits, patient is afebrile. General: Patient is well-nourished well-developed and in no acute distress. Head: Normocephalic, atraumatic Eyes: Pupils equal round and reactive bilaterally, extra occular motion intact bialterally ENT: Moist mucous membranes Neck: Supple, no lymphadenopathy, no JVD, no meningismus CVS: Heart regular rate and rhythm, no murmurs, rubs or gallops, radial pulses 2+ bilaterally Resp: Respirations nondistressed, lung sounds clear bilaterally Abdomen: Soft, epigastric and right upper quadrant tenderness to palpation with no guarding or rebound tenderness, negative Astudillo sign, nondistended, no palpable masses, normal bowel sounds Back: Nontender Extremities: Nontender, atraumatic, active full range of motion, no peripheral edema Skin: warm, no rashes, no petechia Neuro: Alert and oriented x 4, CN 2-12 intact, no lateralizing neurological defecits Psyc: Normal affect Test Results: CBC unremarkable, chemistry shows mild hypokalemia 3.0, liver panel shows elevation of the patient's total bilirubin from 0.5-1.5, and elevation of alkaline phosphatase ALT and AST to 119 320 and 196 respectively. Bedside ultrasound demonstrates a thickened gallbladder wall of 5 mm with echogenic foci and a positive sonographic Astudillo sign Emergency Department Course and Treatment: Patient presented secondary to epigastric pain. Workup as noted above is concerning for the possibility of cholecystitis. I controlled patient's pain with Toradol and Zofran. Discussed patient's case with general surgery Dr. Gibson who requested formal ultrasound. Patient was given Zosyn, formal ultrasound will be obtained, the patient will be admitted for cholecystectomy. Disposition: Admission Impression: 1. Acute cholecystitis This note was generated with [employer] dictation software. It may contain incorrect words, spelling, and punctuation that were not noted in review of the chart prior to signing ED Disposition - Plan for ED Patient: Chief Complaint: Abd Pain
[2018-06-29] MEDS: Piperacil/Tazobactam 3.375 GM/50 ML ML IV ×2 (02:57→15:02)
[2018-06-29] MEDS: Lactated Ringers 1,000 ML 130 ML IV ×3 (05:05→22:48)
[2018-06-29] MEDS: Potassium Chloride 10mEq/100mL 10 MEQ/100 ML IV.SOLN. 100 MEQ IV BOLUS ×4 (05:05→10:33)
--- NOTE | 2018-06-29 07:51 | HP.PCM_ITS ---
Problem List (1) Cholelithiasis Status: Acute Qualifiers: Cholelithiasis location: gallbladder (2) Elevated liver function tests Status: Acute (3) Cholecystitis Status: Acute History of Present Illness Date of Admission: 06/29/18 The patient is a 32 year old F presents to the ER due to epigastric pain. Patient is 2 months from a vaginal delivery. Patient states she has been having epigastric pain on and off for about a month she has maybe 1-3 episodes a week. She had it for on Friday for about an hour and a half and yesterday for 2-1/2 hours. Patient rated the pain out of 10/10. Patient did have nausea but no vomiting. She did have a normal bowel movement on Friday as well. Patient denies reflux symptoms. Patient states that she typically will get the epigastric pain hours after eating she has gotten after eating pizza after a couple hours. Typically it would resolve on its own. Patient did receive some Toradol for this in the ER. Currently her pain is a 0 out of 10. Patient had slight left shift with a normal white blood cell count, elevated liver functions, ultrasound the gallbladder did show multiple gallstones, wall o f 3.2 cm, no pericholecystic fluid, no Astudillo sign at the time of the initial ultrasound, common bile duct of 4 mm. Patient was kept n.p.o. with IV fluids plan for cholecystectomy today. 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 Denies: Vomiting Genitourinary: Denies: Dysuria Musculoskeletal: Denies: Joint Pain Skin: Denies: Rash Neurological: Denies: Balance problems Endocrine: Denies: Polyuria Hematologic/ Lymphatic: Denies: Easy Bruising, Easy Bleeding VTE Information - Inpt Only VTE Present on Admission: Yes VTE Mechan Device Prophylaxis: SCD's VTE Pharm Prophylaxis ordered?: No Reason prophylaxis not ordered:: Treatment Not Indicated Patient Problems: Active and Suspected Problems Cholelithiasis (Acute) Elevated liver function tests (Acute) Cholecystitis (Acute) - Physical Exam General: Alert, Oriented x3, Cooperative, No apparent distress HEENT: Atraumatic Lungs: Normal air movement Cardiovascular: Regular rate Abdomen: Soft, Non-Distended, Passing Flatus, Tender - mild LUQ/RUQ, no PS Extremities: No clubbing, No cyanosis, No edema Neurological: Cranial nerves II-XII grossly intact Psych/Mental Status: Normal Affect Vital Signs Temp Pulse Resp BP Pulse Ox 98.2 F 52 L 16 113/55 L 99 06/29/18 04:48 06/29/18 04:48 06/29/18 04:48 06/29/18 04:48 06/29/18 04:48 Oxygen Delivery Method Room Air Weight: 167 lb Body Mass Index (BMI) 30.5 Intake and Output for Last 24 Hours 06/27/18 06/28/18 06/29/18 23:59 23:59 23:59 Intake Total 273 / 273 Balance 273 / 273 Laboratory Tests Past 24 Hrs 06/29/18 06/29/18 00:03 00:03 WBC 8.2 RBC 4.41 Hgb 13.4 Hct 39.9 MCV 90.5 MCH 30.4 MCHC 33.6 RDW 13.0 RDW Differential 42.6 Plt Count 278 MPV 11.4 Immature Gran % (Auto) 0.100 Neut % (Auto) 76.6 H Lymph % (Auto) 17.1 L [place] % (Auto) 5.2 Eos % (Auto) 0.9 Baso % (Auto) 0.1 Absolute Neuts (auto) 6.3 Absolute Lymphs (auto) 1.40 Total Counted Not Reportable Sodium 140 Potassium 3.0 L Chloride 107 Carbon Dioxide 22.0 Anion Gap 11 BUN 11 Creatinine 0.82 Estim Creat Clear Calc 79.34 Est GFR (MDRD) Af Amer 105 Est GFR (MDRD) Non-Af 87 BUN/Creatinine Ratio 13.4 Glucose 110 H Calcium 8.6 Total Bilirubin 1.50 H AST 196 H ALT 320 H Alkaline Phosphatase 119 H Total Protein 7.1 Albumin 3.9 Globulin 3.2 Albumin/Globulin Ratio 1.2 Lipase 127 Assessment/Plan All Active Problems False labor (Acute) Cholelithiasis (Acute) Elevated liver function tests (Acute) Cholecystitis (Acute) 32-year-old female with cholelithiasis, acute cholecystitis, elevated liver functions 1. Discussed procedure laparoscopic cholecystectomy with cholangiograms, possible open along with the risk but not limited to bleeding, infection, bile leak/retained gallstones requiring ERCP, injury to another organ (bile ducts etc.)may require transfer to tertiary care facility, adhesion, hernia at incision sites, and anesthesia. Patient expressed understanding and had no further questions at this time. 2. start IV Protonix 3. Hemangioma of the liver we will plan to get triple phase CT for better evaluation instead of an MRI. This may be done as an outpatient. Arlene Moreno M.D. Pager: [phone] [facility] [address] [place] [address], [address] [place] [id number] Office: [phone]
[2018-06-29 08:11] LABS: Mucous, Urine 0 SEEN /hpf (<or=2+)
[2018-06-29 08:14] LABS: Color, Urine Yellow (Yellow); Glucose, Dipstick Normal (Normal); Ketone-Dipstick Negative (Negative); Leukocyte Esterase-Dipstick Negative /ul (Negative); Nitrite-Dipstick Negative (Negative); Occult Blood-Urine 50 /ul (Negative); Protein-Dipstick Negative (Negative); Urine Bilirubin Dipstick Negative (Negative); Urine Clarity Clear (Clear); Urine Urobilinogen Normal (Normal)
[2018-06-29 08:25] LABS: White Blood Cells 0-5 SEEN /hpf (0-5)
[2018-06-29 08:26] LABS: Bacteria 1+ /hpf (None Seen); Red Blood Cells-Urine 0-5 SEEN /hpf (0-5); Squamous Epithelial Cells - UA 0-5 SEEN /hpf (5-10)
[2018-06-29 08:28] LABS: Internal QC Validated? YES +Cl - CLEAR BKGD
[2018-06-29 08:32] LABS: Pregnancy, Urine Negative Negative
--- NOTE | 2018-06-29 09:50 | EKG12_ITS ---
Test Reason : PREOP Blood Pressure : / mmHG Vent. Rate : 054 BPM Atrial Rate : 054 BPM P-R Int : 140 ms QRS Dur : 076 ms QT Int : 460 ms P-R-T Axes : 043 032 016 degrees QTc Int : 436 ms Sinus bradycardia with sinus arrhythmia Otherwise normal ECG Confirmed by TANI MOORE, MESHA ([id number]), make up editor LILI REAVES ([id number]) on 07/02/2018 4:17:08 PM Referred By: Arlene Moreno Confirmed By:MESHA FREIRE MD
--- NOTE | 2018-06-29 11:19 | RAD_ITS ---
CLINICAL HISTORY: Female, 32 years old. Cholelithiasis PROCEDURE: CHOLANGIOGRAM - intraoperative TECHNIQUE: (7 fluoroscopic guided images were performed during intraoperative cholangiogram FINDINGS: The images submitted for interpretation demonstrate gallbladder loaded with stones. There is contrast filling the common hepatic and common bile ducts however there is no appreciable emptying of the common bile duct on the images submitted. However would recommend correlation with operative notes for more complete information RAD/Cholangiogram/ O R,Initial IMPRESSION: Cholelithiasis. Emptying of the common bile duct is not demonstrated on images submitted for interpretation. Recommend correlation with operative notes for more complete information Electronically Signed: Reyes Pierson MD at 17:13 EST , Service support ,
[2018-06-29] MEDS: Bupivacaine Mpf 0.5% 30 ML VIAL (12:30)
--- NOTE | 2018-06-29 12:46 | OP.PCM_ITS ---
Problem List (1) Cholelithiasis Status: Acute Qualifiers: Cholelithiasis location: gallbladder (2) Elevated liver function tests Status: Acute (3) Cholecystitis Status: Acute Report of Operation Date of Procedure: 06/29/18 Pre-Operative Diagnosis: Cholelithiasis, cholecystitis, elevated LFTs Post-Operative Diagnosis: Cholecystitis, cholelithiasis, biliary obstruction Surgery/Procedure Performed:: Laparoscopic cholecystectomy with cholangiograms patient care secretary: Mirna Ahmadi Type of Anesthesia:: General/Supplemental Anesthesiologist: Brendan Crowell Special Medications: Cefotetan 2 g IV x1 Specimen's removed: Gallbladder and stones Estimated Blood Loss (mL): <10 cc Fluids Replaced: 900 cc Description of Procedure: Indications this is a 32 year-old female who developed abdominal pain/nausea and on workup was found to have cholelithiasis, elevated LFTs with a normal common bile duct. Laparoscopic cholecystectomy with cholangiograms was elected. Description procedure: The patient was placed on operating table in supine position. General Anesthesia was induced. A timeout was completed verifying correct patient, procedure, site, position, social, and special equipment prior to beginning procedure. An orogastric tube was placed. The abdomen was prepped and draped in usual sterile fashion. An incision was made in the natural skin line above the umbilicus. The fascia was elevated and incised. The peritoneum was elevated and incised. Entry into the peritoneum was confirmed visually and no bowel was noted in the vicinity of the incision. Thurston trocar was placed. The abdomen was insufflated with carbon dioxide to a pressure of 12-15 mmHg. Patient tolerated insufflation well. The laparoscope was then inserted and abdomen inspected. No injuries from initial trocar placement were noted. Additional trochars were then inserted in the following locations 5 mm trocar in the epigastrium and 2 more 5 mm trochars along the right costal margin. The abdomen was inspected no abnormalities were found. The table is placed in reverse Trendelenburg position with the right side up. Gallbladder is noted to be distended and tense. Decompression needle was used to allow the dome of the gallbladder to be grasped and retracted over the dome of the liver.. The adhesions between the gallbladder and omentum were removed with gentle traction. Infundibulum was then grasped with atraumatic grasper through the midclavicular port and retracted to the right lower quadrant. This maneuver exposed Calot's triangle. The peritoneum overlying the gallbladder infundibulum was then incised and cystic duct and artery identified and circumferentially dissected. Patricia catheter was used for cholangiograms. The bifurcation of the right and left bile ducts was seen well however there was no flow into the duodenum as it was obstructed by tiny stones at the distal common bile duct. Patient was also given glucagon to see if this would allow the stones to pass. However there is still no flow into the duodenum. The cystic duct and artery were then doubly clipped and divided close to the gallbladder. The gallbladder then dissected from its peritoneal attachments by electrocautery. Hemostasis was checked and the gallbladder and contained stones were removed using the endoscopic retrieval bag through the umbilical port. The gallbladder is passed off table as specimen. The gallbladder fossa was copiously irrigated with saline and hemostasis obtained. There is no evidence of bleeding from the gallbladder fossa or cystic artery leakage of bile from the cystic duct stump. Secondary trochars removed under direct vision. No bleeding was noted the trocar sites. The laparoscope was withdrawn and umbilical trocar removed. The abdomen was allowed to collapse. The fascia of the 12 mm trocar was closed with a [id number] 0 Vicryl suture. The skin was closed with sutures of 4-0 Monocryl and Steri-Strips. The orogastric tube was removed and the patient was extubated. The patient tolerated procedure well and was taken to the postanesthesia care unit in stable condition. - Complications none
[2018-06-29] MEDS: HYDROcodone Bitartrate/Apap 5/325 Tablet PO (18:50)
[2018-06-29 19:19] LABS: AST(SGOT) 203 U/L (15-37); Alanine Aminotransfer ALT/SGPT 406 U/L (13-56); Albumin, Serum 3.3 g/dL (3.2-5.0); Alkaline Phosphatase 136 U/L (45-117); Bilirubin, Direct 1.21 mg/dL (0.00-0.30); Protein, Total 6.3 g/dL (6.4-8.2)
[2018-06-30] VITALS (9 sets, daily range): BP systolic 114–131; BP diastolic 62–80; PULSE 62–87; RESP 16–18; TEMP 36.4–37.1; O2SAT 94–98; BMI 30.5
[2018-06-30] MEDS: Piperacil/Tazobactam 3.375 GM/50 ML ML IV (05:09)
[2018-06-30 05:54] LABS: Absolute Lymphocyte Count 1.11 X10^3/ul (0.83-4.51); Absolute Neutrophil Count 3.8 X10^3/uL (2.0-7.7); Basophil# 0.01 X10^3/uL; Basophil% 0.2 % (0-1); Eosinophil# 0.05 X10^3/uL; Eosinophils% 0.9 % (0-5); Hematocrit 37.2 % (37-47); Hemoglobin 12.1 g/dl (12.0-15.0); Lymphocyte # 1.11 X10^3/ul (4.0); Lymphocyte % 20.5 % (19-41); Mean Corp Hgb Conc 32.5 g/gl (32-36); Mean Corpuscular Hgb 30.2 pg (27.0-32.0); Mean Corpuscular Volume 92.8 fL (81-99); Mean Platelet Vol. 11.5 fl (6.2-12.0); Monocyte# 0.46 X10^3/uL; Monocyte% 8.5 % (0-10); Neutrophil # 3.79 X10^3/uL (2.7-7.7); Neutrophil % 69.9 % (47-70); Platelet Count 258 K/mm3 (150-450); RBC Distribution Width CV 12.9 % (11.6-14.6); RBC Distribution Width SD 42.4 fl (35.1-43.9); Red Blood Count 4.01 M/mm3 (4.2-5.4); White Blood Count 5.4 K/mm3 (4.4-11.0)
[2018-06-30 05:56] LABS: POSITIVE COUNT NO; POSITIVE DIFFERENTIAL NO; POSITIVE MORPHOLOGY NO
[2018-06-30] MEDS: Lactated Ringers 1,000 ML 130 ML IV (05:59)
[2018-06-30 06:14] LABS: AST(SGOT) 128 U/L (15-37); Alanine Aminotransfer ALT/SGPT 329 U/L (13-56); Alkaline Phosphatase 132 U/L (45-117); Anion Gap 7 (5-15); BUN 4 mg/dL (7-18); BUN/Creat Ratio 5.1 RATIO (10-20); Bilirubin, Direct 0.59 mg/dL (0.00-0.30); Calcium,Total 7.9 mg/dL (8.5-10.1); Chloride 111 mmol/L (98-107); Creatinine, Serum 0.78 mg/dL (0.55-1.02); EST Glomerular Filtration Rate 91 mL/min (>60); Est Glom Filt Rate - Afr Amer 110 mL/min (>60); Estimated Creatinine Clearance 83.41 ml/min; Globulin 3.1 g/dL (2.2-4.2); Glucose 84 mg/dL (74-106); Potassium 3.6 mmol/L (3.5-5.1); Protein, Total 6.1 g/dL (6.4-8.2); Sodium Level 142 mmol/L (136-145)
[2018-06-30] MEDS: HYDROcodone Bitartrate/Apap 5/325 Tablet PO (07:40)
--- NOTE | 2018-06-30 08:22 | PCM.PN.SRG ---
Patient Problems: Active and Suspected Problems Cholelithiasis (Acute) Elevated liver function tests (Acute) Cholecystitis (Acute) Subjective: Patient still complains of some discomfort in the right upper quadrant but is controlled with [place], plan for an ERCP today at 1:00 - Physical Exam General: Alert, Oriented x3, Cooperative, No apparent distress Lungs: Clear to auscultation Cardiovascular: Regular rate Abdomen: Soft, Non-Distended, Tender - Near incisions and in the area of the right upper quadrant, no peritoneal signs incisions clean dry and intact Extremities: No clubbing, No cyanosis, No edema Vital Signs Temp Pulse Resp BP Pulse Ox 98.5 F 62 18 126/80 H 96 06/30/18 07:40 06/30/18 07:40 06/30/18 07:40 06/30/18 07:40 06/30/18 07:40 Oxygen Flow Rate (L/min) 2 Oxygen Delivery Method Room Air Weight: 166 lb 14.239 oz Body Mass Index (BMI) 30.5 Intake and Output for Last 24 Hours 06/28/18 06/29/18 06/30/18 23:59 23:59 23:59 Intake Total 3111 / 3111 1922 / 1922 Output Total 1000 / 1000 400 / 400 Balance 2111 / 2111 1522 / 1522 Laboratory Tests Past 24 Hrs 06/29/18 06/29/18 06/29/18 07:50 07:50 15:25 WBC RBC Hgb Hct MCV MCH MCHC RDW RDW Differential Plt Count MPV Immature Gran % (Auto) Neut % (Auto) Lymph % (Auto) [place] % (Auto) Eos % (Auto) Baso % (Auto) Absolute Neuts (auto) Absolute Lymphs (auto) Total Counted Sodium Potassium Chloride Carbon Dioxide Anion Gap BUN Creatinine Estim Creat Clear Calc Est GFR (MDRD) Af Amer Est GFR (MDRD) Non-Af BUN/Creatinine Ratio Glucose Calcium Total Bilirubin 1.90 H Direct Bilirubin 1.21 H AST 203 H ALT 406 H Alkaline Phosphatase 136 H Total Protein 6.3 L Albumin 3.3 Globulin 3.0 Urine Color Yellow Urine Clarity Clear Urine pH 6.0 Ur Specific [place] 1.010 Urine Protein Negative Urine Glucose (UA) Normal Urine Ketones Negative Urine Occult Blood 50 H Urine Nitrite Negative Urine Bilirubin Negative Urine Urobilinogen Normal Ur Leukocyte Esterase Negative Urine RBC 0-5 SEEN Urine WBC 0-5 SEEN Ur Squamous Epith Cells 0-5 SEEN Urine Bacteria 1+ Urine Mucus 0 SEEN Urine Test Negative 06/30/18 06/30/18 05:08 05:08 WBC 5.4 RBC 4.01 L Hgb 12.1 Hct 37.2 MCV 92.8 MCH 30.2 MCHC 32.5 RDW 12.9 RDW Differential 42.4 Plt Count 258 MPV 11.5 Immature Gran % (Auto) 0.000 Neut % (Auto) 69.9 Lymph % (Auto) 20.5 [place] % (Auto) 8.5 Eos % (Auto) 0.9 Baso % (Auto) 0.2 Absolute Neuts (auto) 3.8 Absolute Lymphs (auto) 1.11 Total Counted Not Reportable Sodium 142 Potassium 3.6 Chloride 111 H Carbon Dioxide 24.0 Anion Gap 7 BUN 4 L Creatinine 0.78 Estim Creat Clear Calc 83.41 Est GFR (MDRD) Af Amer 110 Est GFR (MDRD) Non-Af 91 BUN/Creatinine Ratio 5.1 L Glucose 84 Calcium 7.9 L Total Bilirubin 1.40 H Direct Bilirubin 0.59 H AST 128 H ALT 329 H Alkaline Phosphatase 132 H Total Protein 6.1 L Albumin 3.0 L Globulin 3.1 Urine Color Urine Clarity Urine pH Ur Specific [place] Urine Protein Urine Glucose (UA) Urine Ketones Urine Occult Blood Urine Nitrite Urine Bilirubin Urine Urobilinogen Ur Leukocyte Esterase Urine RBC Urine WBC Ur Squamous Epith Cells Urine Bacteria Urine Mucus Urine Test Medical Necessity - Tobacco Use Smoking Status: Never smoker Assessment/Plan All Active Problems False labor (Acute) Cholelithiasis (Acute) Elevated liver function tests (Acute) Cholecystitis (Acute) 32-year-old female with postop day 1 status post laparoscopic cholecystectomy with cholangiograms, biliary obstruction 1. Patient will undergo an ERCP with Dr. Metz today about 1:00. Patient is currently n.p.o. patient's liver functions are still elevated slightly decreased from previous. 2. IV Protonix 3. Hemangioma of the liver we will plan to get triple phase CT for better evaluation instead of an MRI. This may be done as an outpatient. Arlene Moreno M.D. Pager: [phone] [facility] [address] [place] [address], [address] [place] [id number] Office: [phone]
[2018-06-30] MEDS: Lactated Ringers 1,000 ML 100 ML IV (11:44)
--- NOTE | 2018-06-30 11:52 | NURSING ---
report called to AC for ERCP
--- NOTE | 2018-06-30 13:15 | RAD_ITS ---
PROCEDURE: ERCP. CLINICAL HISTORY: Female, 32 years old. Postop pain. FLUOROSCOPY TIME (if supplied): (0:53) minutes/seconds RADIATION DOSAGE (If Supplied By Facility): ( 23.44 ) mGy TECHNIQUE: Fluoroscopic assistance was provided to Dr. Metz. 3 fluoroscopic spot films are submitted. COMPARISON: Preoperative plain radiograph November 27, 2018. FINDINGS: With an endoscope in the second portion of the duodenum, the ampulla of Vater was cannulated for retrograde passage of a guidewire and contrast injection. The caliber of the duct remains within normal limits. There is limited opacification of the distal duct/ampulla Vater, but no distinct filling defect to indicate a stone. An endoscopic papillotomy is performed. RAD/ERCP Biliary Only IMPRESSION: Successful ERCP and papillotomy and Correlation with procedure note suggested. Electronically Signed: Napoleon Diaz MD at 18:55 EST , Service support ,
--- NOTE | 2018-06-30 13:32 | PCA ---
pt off floor
--- NOTE | 2018-06-30 13:37 | PCM.PN.BLA ---
Progress Note The patient had a cholangiogram during cholecystectomy yesterday which showed a retained stone which was obstructing the duct. Today her LFTs are mildly improved but I am unable to ensure that the stone has passed. I do recommend ERCP. I explained ERCP in detail with the patient. I explained the risks which include but not limited to bleeding, infection, perforation of the bile duct or bowels, pancreatitis. The patient understands and is willing to proceed with ERCP. Eugenio Metz MD Pager: [facility] [address] [place] [address] Office:
--- NOTE | 2018-06-30 13:41 | OP.ENDO_ITS ---
Patient Name: Ghislaine Cody Procedure Date: 06/30/2018 12:18 PM Date of : 1985 Age: 32 Procedure: ERCP Indications: Common bile duct stone(s) Providers: Eugenio Metz MD Referring MD: Arlene Moreno MD Medicines: General Anesthesia Patient Profile: This is a 32 year old female. Refer to note in patient chart for documentation of history and physical. Complications: No immediate complications. Estimated blood loss: Minimal. Procedure: Pre-Anesthesia Assessment: - Prior to the procedure, a History and Physical was performed, and patient medications and allergies were reviewed. The patient's tolerance of previous anesthesia was also reviewed. The risks and benefits of the procedure and the sedation options and risks were discussed with the patient. All questions were answered, and informed consent was obtained. Prior Anticoagulants: The patient has taken no previous anticoagulant or antiplatelet agents. ASA Grade Assessment: II - A patient with mild systemic disease. After reviewing the risks and benefits, the patient was deemed in satisfactory condition to undergo the procedure. After obtaining informed consent, the scope was passed under direct vision. Throughout the procedure, the patient's blood pressure, pulse, and oxygen saturations were monitored continuously. The [id number] endoscope was introduced through the mouth, and advanced to the duodenum and used to inject contrast into the bile duct. The ERCP was accomplished without difficulty. The patient tolerated the procedure well. Scope In: 1:22:04 PM Scope Out: 1:29:25 PM Total Procedure Duration Time 0 hours 7 minutes 21 seconds Findings: The major papilla was normal. A 0.035 inch x 260 cm straight Dreamwire was passed into the biliary tree. The sphincterotome was passed over the guidewire and the bile duct was then deeply cannulated. Contrast was injected. Opacification of the lower third of the main bile duct was seen. Biliary sphincterotomy was made with a monofilament sphincterotome using ERBE electrocautery. The sphincterotomy oozed blood. To discover objects, the biliary tree was swept with a 12 mm balloon starting at the bifurcation. Debris was swept from the duct. The endoscope was withdrawn from the patient. Impression: - The major papilla appeared normal. - A biliary sphincterotomy was performed. - The biliary tree was swept and debris was found. Recommendation: - Advance diet as tolerated. - Return patient to [facility] for possible discharge same day. Procedure Code(s): --- Professional --- 26579, Endoscopic retrograde cholangiopancreatography (ERCP); with removal of calculi/debris from biliary/pancreatic duct(s) Diagnosis Code(s): --- Professional --- K80.50, Calculus of bile duct without cholangitis or cholecystitis without obstruction CPT copyright 2017 [employer]. All rights reserved. The codes documented in this report are preliminary and upon rod tape operator review may be revised to meet current compliance requirements. Eugenio Metz MD 06/30/2018 1:41:00 PM This report has been signed electronically. Number of Addenda: 0 Note Initiated On: 06/30/2018 12:18 PM
--- NOTE | 2018-06-30 13:54 | PCM.DC.GB ---
Discharge Diet: Light diet - advance as tolerated Discharge Activity: May not drive while taking narcotic pain medications. May shower in (days): 0 Lifting Restrictions: no lifting >20 lb for 4 weeks Call your doctor if your incision/area has: Continuous Slow Oozing, Sudden Increased Bleeding, Increased Pain/ Swelling, Increased Redness, Foul Smelling Discharge, Swelling at the incision site Call your doctor if you observe: Fever of 101 or Higher Remove Dressing in (days):: 1 - keep steris on for 7-10 days, ok to remove after 10 days Additional Instructions: Okay to take ibuprofen 400-600 mg PO q6hr PRN along with the hydrocodone/acetaminophen. Avoid Tylenol since there is already Tylenol in the hydrocodone/acetaminophen. Take all pain meds with food. Hydrocodone/acetaminophen can cause constipation recommend taking daily stool softener (i.e. Colace/docusate) while taking the pain meds. Recommend starting some MiraLAX in 1-2 days if no bowel movement. If still no bowel movement after taking MiraLAX recommend taking magnesium citrate half the bottle and waiting 4-6 hours if still no results take the other half the bottle. Allergies/Adverse Reactions: Allergies No Known Allergies Allergy (Verified 06/28/18 23:41) Medications to take at Discharge Hydrocodone Bitart/Apap 5-325 [[place] 5MG-325MG] 1 - 2 tablet PO Q6H PRN PRN 4 Days #25 tablet 06/30/18 The following prescriptions were given: Hydrocodone Bitart/Apap 5-325 [[place] 5MG-325MG] 1 - 2 tablet PO Q6H PRN PRN 4 Days #25 tablet PRN Reason: Pain Primary Care Physician: Carlton Hernandez [Primary Care Provider] - Test Results: Test results from this visit will be discussed in further detail at your follow-up appointment, if applicable. Please Follow Up With: Arlene Moreno MD - after 5pm/weekends call [phone] When: call office [phone] for f/u in 2 weeks Proposed Discharge Date: 06/30/18
--- NOTE | 2018-06-30 13:58 | DCINST_ITS ---
Discharge Diet: Light diet - advance as tolerated Discharge Activity: May not drive while taking narcotic pain medications. May shower in (days): 0 Lifting Restrictions: no lifting >20 lb for 4 weeks Call your doctor if your incision/area has: Continuous Slow Oozing, Sudden Increased Bleeding, Increased Pain/ Swelling, Increased Redness, Foul Smelling Discharge, Swelling at the incision site Call your doctor if you observe: Fever of 101 or Higher Remove Dressing in (days):: 1 - keep steris on for 7-10 days, ok to remove after 10 days Additional Instructions: Okay to take ibuprofen 400-600 mg PO q6hr PRN along with the hydrocodone/acetaminophen. Avoid Tylenol since there is already Tylenol in the hydrocodone/acetaminophen. Take all pain meds with food. Hydrocodone/acetamino phen can cause constipation recommend taking daily stool softener (i.e. Colace/docusate) while taking the pain meds. Recommend starting some MiraLAX in 1-2 days if no bowel movement. If still no bowel movement after taking MiraLAX recommend taking magnesium citrate half the bottle and waiting 4-6 hours if still no results take the other half the bottle. Allergies/Adverse Reactions: Allergies No Known Allergies Allergy (Verified 06/28/18 23:41) Medications to take at Discharge Hydrocodone Bitart/Apap 5-325 [[place] 5MG-325MG] 1 - 2 tablet PO Q6H PRN PRN 4 Days #25 tablet 06/30/18 The following prescriptions were given: Hydrocodone Bitart/Apap 5-325 [[place] 5MG-325MG] 1 - 2 tablet PO Q6H PRN PRN 4 Days #25 tablet PRN Reason: Pain Primary Care Physician: Carlton Hernandez [Primary Care Provider] - Test Results: Test results from this visit will be discussed in further detail at your follow- up appointment, if applicable. Please Follow Up With: Arlene Moreno MD - after 5pm/weekends call [phone] When: call office [phone] for f/u in 2 weeks Proposed Discharge Date: 06/30/18
== END 2018-06-30 17:03 | disposition home or self-care (01) ==
LOC: ED 06-29 00:06 → MS3 06-29 01:50
PROVIDERS: Anesthesiology; Surgery; Admitting Provider Surgery; Emergency Provider Emergency Medicine; Family Provider Family Medicine; PCP Family Medicine; Referring Provider Surgery; Visit Provider Surgery
PROC: (CPT 47610; principal; 2018-06-29 10:35)
DX: K80.13 Calculus of gallbladder with acute and chronic cholecystitis with obstruction (principal); D18.03 Hemangioma of intra-abdominal structures; K80.50 Calculus of bile duct without cholangitis or cholecystitis without obstruction
CPT/HCPCS: 00790; 43262; 43264; 47563; 36415; 74300; 74328; 76000; 76705; 80048; 80053; 80076; 81001; 81025; 83690; 85025; 88304; 93005; 96361; 96365; 96366; 96367; 96375; 97802; 99218; 99284; J7030; J7120; A4216; G0378; J1610; J2405